=== PATIENT | male | born 1965 | race Caucasian/White ===

== ENCOUNTER 2018-10-19 13:55 | Emergency (ER) | payer MEDICAID ==
[2018-10-19 14:01] VITALS: BP 193/123
--- NOTE | 2018-10-19 14:16 | ED Physician Documentation ---
PD HPI HEENT - Stated complaint Stated Complaint: MOUTH PX - Chief complaint Chief Complaint: Heent - History obtained from History obtained from: Patient, Family - History of Present Illness Timing - onset: How many days ago (3) Timing - duration: Days (3) Timing - details: Gradual onset Pain level max: 6 Pain level now: 6 Location: Other (L face) Worsens: Other (palpation) Associated symptoms: Other (no dental pain). No: Fever, Congestion, Rhinorrhea, Trismus, Unable to swallow, Swollen nodes, Facial swelling, Headache, Cough Similar symptoms before: Has not had sx before Recently seen: Not recently seen Review of Systems Constitutional: denies: Fever, Chills Ears: denies: Ear pain Nose: denies: Rhinorrhea / runny nose, Congestion, Epistaxis, Sinus pressure / pain Cardiac: denies: Chest pain / pressure Respiratory: denies: Cough GI: denies: Nausea, Vomiting, Diarrhea Skin: denies: Rash Musculoskeletal: denies: Neck pain, Back pain Neurologic: denies: Headache PD PAST MEDICAL HISTORY - Past Medical History Cardiovascular: Hypertension Endocrine/Autoimmune: Type 2 diabetes - Past Surgical History Past Surgical History: No - Present Medications Home Medications: Ambulatory Orders Medication Instructions Recorded Confirmed Aspirin 81 10/19/18 Bp Meds 1 10/19/18 Clopidogrel [Plavix] 10/19/18 - Allergies Allergies/Adverse Reactions: Allergies Allergy/AdvReac Type Severity Reaction Status Date / Time Penicillins Allergy Unknown Verified 10/19/18 14:00 - Social History Does the pt smoke?: Yes Smoking Status: Current every day smoker Does the pt drink ETOH?: No Does the pt have substance abuse?: Yes - Immunizations Immunizations are current?: Yes PD ED PE NORMAL - Vitals Vital signs reviewed: Yes - General General: Alert and oriented X 3, No acute distress - HEENT HEENT: Moist mucous membranes, Other (Normal dental exam. No tenderness. No gingival swelling. The left cheek reveals a firm mildly tender area over the parotid gland and preauricular area.) - Neck Neck: Supple, no meningeal sign - Cardiac Cardiac: RRR - Respiratory Respiratory: No respiratory distress, Clear bilaterally Results - Vitals Vitals: Vital Signs - 24 hr 10/19/18 13:57 Temperature 36 C L Heart Rate 104 H Respiratory 20 Rate Blood Pressure 193/123 H O2 Saturation 100 Oxygen O2 Source Room air PD MEDICAL DECISION MAKING - ED course Complexity details: considered differential, d/w patient ED course: 53-year-old male with what appears to be parotitis versus sialoadenitis. Unclear if there is a salivary stone? No overlying skin changes. No fever. No evidence of infection. We will try conservative treatment and have him follow- up with the ENT and his doctor for further care. No evidence of abscess, cellulitis. Patient counseled regarding signs and symptoms for which I believe and urgent re-evaluation would be necessary. Patient with good understanding of and agreement to plan and is comfortable going home at this time This document was made in part using voice recognition software. While efforts are made to proofread this document, sound alike and grammatical errors may occur. Departure - Departure Disposition: 01 Home, Self Care Clinical Impression: Sialoadenitis, Parotitis Condition: Good Instructions: ED Sublingual Gland Obstruction Follow-Up: your,doctor in 1 week if not better [Other] [facility] [Provider Group] Comments: Apply warm moist heat to the area and massage the gland several times a day. This should improve the symptoms. This may be due to a stone that is lodged in the duct or a viral infection or other cause. Return immediately if you develop worsening pain, fevers or swelling. Follow-up with your doctor for further care. Sucking on a hard, sour candy such as lemon drops may also help.
== END 2018-10-19 14:24 | disposition home or self-care (01) ==
LOC: ED 13:55
DX: K11.20 Sialoadenitis, unspecified (principal); I10 Essential (primary) hypertension; E11.9 Type 2 diabetes mellitus without complications; Z79.82 Long term (current) use of aspirin; F17.200 Nicotine dependence, unspecified, uncomplicated
CPT/HCPCS: 99282; 99283